=== PATIENT | female | born 1965 | race African-American/Black ===

== ENCOUNTER → 2016-09-16 19:14 | Outpatient (CLI) | payer OTHER ==
[~2016-09-16 19:14] MED LIST: ELIQUIS2.5 MG PO; HYDROCODONE-APA1 TAB PO; LOTREL 5/20 MG1 CAP; MOBIC7.5 MG PO; VALTREX500 MG PO; ZOFRAN4 MG PO
[2016-10-13 11:33] VITALS: BMI 40.4
== END | disposition home or self-care (01) ==
LOC: D.LABREF 19:14
DX: M17.9 Osteoarthritis of knee, unspecified (principal); Z11.8 Encounter for screening for other infectious and parasitic diseases

== ENCOUNTER 2016-10-09 09:30 | Inpatient (IN) | payer OTHER ==
[~2016-10-09] VITALS: Ht 162.6 cm; Wt 106.8 kg
[2016-10-09 09:15] LABS: BASOPHILS 1.1 % (0.0-2.0); EOSINOPHILS 1.9 % (0-7); HEMATOCRIT 40.3 % (36.0-48.0); HEMOGLOBIN 12.7 g/dL (12-16); IMMATURE GRANULOCYTES 0.2 % (0-5); LYMPHOCYTES 41.8 % (15-50); MCH 28.9 pg (26.0-34.0); MCHC 31.5 g/dL (31.0-37.0); MCV 91.8 fL (80.0-100.0); MEAN PLATELET VOLUME 11.5 fL (7.4-10.4); MONOCYTES 9.6 % (2-11); NEUTROPHILS 45.4 % (40-80); PLATELET COUNT 227 10x3/uL (130-400); RBC 4.39 10x6/uL (4.00-5.40); RDW 13.9 % (11.5-14.5); WBC 5.2 10x3/uL (4.8-10.8)
[2016-10-09 09:21] LABS: APPEARANCE HAZY (CLEAR); BACTERIA MODERATE /hpf (NONE SEEN); BILIRUBIN NEGATIVE (NEGATIVE); COLOR YELLOW (YELLOW); GLUCOSE NEGATIVE (NEGATIVE); KETONE NEGATIVE (NEGATIVE); LEUKOCYTE ESTERASE TRACE (NEGATIVE); NITRITE NEGATIVE (NEGATIVE); PROTEIN NEGATIVE (NEGATIVE); RED CELLS - URINE OCC /hpf (0-5); SPECIFIC GRAVITY 1.025 (1.005-1.020); UROBILINOGEN NORMAL (NORMAL); WHITE CELLS - URINE 0-5 /hpf (0-5)
[2016-10-09 09:22] LABS: MUCUS >1+ /lpf (NONE SEEN)
[2016-10-09 09:24] LABS: APTT 27.3 SECONDS (22.8-39.4); INR 1.02 (0.85-1.17); PROTIME 13.2 SECONDS (11.6-15.0)
[2016-10-09 09:27] LABS: ANION GAP 7.9 mmol/L (8-16); CALCIUM 8.8 mg/dL (8.5-10.1); CARBON DIOXIDE 30.8 mmol/L (21.0-32.0); POTASSIUM - SERUM 3.7 mmol/L (3.5-5.1)
[~2016-10-09 09:30] MED LIST changes: -ELIQUIS2.5 MG PO; -HYDROCODONE-APA1 TAB PO; -ZOFRAN4 MG PO
[2016-10-13] VITALS (10 sets, daily range): BP systolic 108–158; BP diastolic 75–96; Ht 162.6 cm; Wt 106.8 kg
--- NOTE | 2016-10-13 08:54 | NUR ---
FOOT AND LEG,R, WASHED WITH HIBICLENS AND ALCOHOL PRIOR TO CHLORPREP PER DN
--- NOTE | 2016-10-13 10:10 | NUR ---
RECEIVED TO ROOM 2208 AT THIS TIME FROM THE RECOVERY ROOM VIA BED. PT IS LETHARGIC, BUT ORIENTED. IV TO RIGHT HAND PATENT. DRESSING TO RIGHT KNEE C/D/I. ICE TO RIGHT KNEE AT THIS TIME. AUNT AT BEDSIDE. POST OPERATIVE VITAL SIGNS INITIATED PER PROTOCOL. PT DENIES PAIN AT THIS TIME. SCD'S TO BILATERAL LOWER EXTREMETIES ON AND IN WORKING ORDER. BED ALARM ON. CALL LIGHT IN REACH. ASSESSMENT AND HISTORY OBTAINED PER FLOWSHEET. ISNTRUCTED PT TO USE INCENTIVE SPIROMETER 10 TIMES AN HOUR WHILE AWAKE. PT VERBALIZED UNDERSTANDING AND DEMONSTRATED USE WITH 2,500ML OF INSPIRED VOLUME. PLACED ON BED HAMILTON AND PT VOIDED 300ML OF CLEAR, YELLOW URINE WITHOUT DIFFICULTY. DENIES FURTHER NEEDS AT THIS TIME. WILL CONTINUE WITH PLAN OF CARE.
--- NOTE | 2016-10-13 12:30 | NUR ---
EATING LUNCH AT THIS TIME. VITAL SIGNS REMAIN STABLE. CALL LIGHT IN REACH, DRESSING TO RIGHT KNEE C/D/I. WILL CONTINUE WITH PLAN OF CARE.
--- NOTE | 2016-10-13 14:25 | NUR ---
USING BED HAMILTON WITHOUT DIFFICULTY AT THIS TIME. DENIES PAIN. CALL LIGHT IN REACH, INCENTIVE SPIROMETER IN USE.
--- NOTE | 2016-10-13 18:15 | NUR ---
PRN NORCO-10 ADMINISTERED PER ORDER AND CPM APPLIED. DENIES FURTHER NEEDS, CALL LIGHT IN REACH, WILL CONTINUE WITH PLAN OF CARE.
--- NOTE | 2016-10-13 18:23 | OP ---
PATIENT NAME: FRANCISCO RAINES MEDICAL RECORD: [id number] :63 LOCATION:[id number] ADMISSION DATE:10/13/16 SURGEON: GODFREY HARRIS MD DATE OF OPERATION: 10/13/2016 PREOPERATIVE DIAGNOSIS: End-stage degenerative arthritis of the right knee. POSTOPERATIVE DIAGNOSIS: End-stage degenerative arthritis of the right knee. PROCEDURE: Right total knee arthroplasty. SURGEON: Godfrey Harris MD ANESTHESIA: General. INTRAOPERATIVE COMPLICATIONS: None. SUMMARY OF PATHOLOGIC FINDINGS: The patient had extensive tricompartmental osteoarthritis. IMPLANTS USED: Carla triathlon press fit total knee arthroplasty system, size 5, distal femur 11 polyethylene insert, size 5, tibial baseplate with a size 33 patella. All components press fit. OPERATIVE SUMMARY IN DETAIL: After obtaining the appropriate preoperative orthopedic surgery consent, as well as anesthetic consultation, evaluation and clearance operating room and placed on the table in supine position. After general laryngeal mask was administered, tourniquet was placed about the proximal aspect of the right lower extremity. Right lower extremity was then prepped and draped in routine sterile fashion. The leg was elevated and exsanguinated, tourniquet was inflated 350 mmHg. Midline incision was taken down for paramedian arthrotomy. Patella was everted, distal femur was exposed. Multiple osteophytes were taken down at this time. An intramedullary guide hole was created for intramedullary guided cut from the distal femoral. This was followed by the intramedullary guide hole cut for the proximal tibia. Appropriate measurements were taken and the chamfer cuts were made for the distal femur. Trials were put into place corresponding to the above-mentioned trials. Final distal femoral preparations as well as proximal tibial preparations were created. The patella was excised for a 33 patellar replacement. Excess osteophytes were revised after the patella was prepared likewise. All press fit components were tamped into place with good fit, fill and stability. The wound was irrigated and then through range of motion and found to be stable in all planes. Paramedian arthrotomy was closed with #2 Ethibond followed by #1 Vicryl, 2-0 Vicryl and skin sayra. Sterile dressings were applied. The patient was awakened, taken to recovery in stable condition. All final needle and sponge counts were correct. TRANSINT:[id number] Voice Confirmation ID: [id number] DOCUMENT ID: [id number] OPERATIVE REPORT [id number] FRANCISCO RAINES MD, GODFREY TURNER at 1823 CC: [id number] DICTATION DATE: 10/13/16 0940 TRANSPORT ANALYST: 10/13/16 1129 ADM IN [facility] [address] [id number]
--- NOTE | 2016-10-14 01:00 | NUR ---
RESTING WITH EYES CLOSED, RESP WITH EASE, DSG TO R KNEE CDI, CL IN REACH
[2016-10-14 04:00] VITALS: BP 116/73
--- NOTE | 2016-10-14 05:02 | NUR ---
CPM PLACED ON RIGHT LEG
[2016-10-14 06:42] LABS: HEMATOCRIT 33.6 % (36.0-48.0); HEMOGLOBIN 10.5 g/dL (12-16); MCHC 31.3 g/dL (31.0-37.0); MCV 89.6 fL (80.0-100.0); MEAN PLATELET VOLUME 11.7 fL (7.4-10.4); RBC 3.75 10x6/uL (4.00-5.40); RDW 13.6 % (11.5-14.5); WBC 11.6 10x3/uL (4.8-10.8)
--- NOTE | 2016-10-14 07:14 | NUR ---
STABLE THROUGH THE SHIFT, A&Ox3, MODERATE PAIN CONTROLED BY NORCO 10. NO NEEDS NOTED THROUGHOUT THE NIGHT.
--- NOTE | 2016-10-14 07:50 | NUR ---
PT SEEN AND ASSESSED. STATES PAIN IS CONTROLLED AT MOMENT BUT WILL NEED SOME WHEN DUE AGAIN. DRESSING TO LEFT KNEE CLEAN DRY AND INTACT-LEG WRAPPED WITH MICHELLE WRAP FROM MID THIGH TO CALF-ABLE TO MOVE TOES FREELY AND ARE WARM AND PINK. CURRENTLY IN CPM MACHINE-BED ALARM ON FOR SAFETY AND CALL LIGHT IN REACH
[2016-10-14 08:39] VITALS: BP 155/91
[2016-10-14 12:26] VITALS: BP 153/98
--- NOTE | 2016-10-14 13:25 | NUR ---
Is the patient Alert and Oriented? Yes 0 * How many steps to enter\exit or inside your home? 3 0 * PCP Dr. Fernando 0 * Pharmacy [facility] 0 * Preadmission Environment Home Alone 0 * ADLs Independent 0 * Equipment Rolling Walker 0 * List name and contact numbers for known caregivers / representatives who currently or will assist patient after discharge: Aunt - Nettie Mendiola [address] [facility] [phone] or [phone] * Additional services required to return to the preadmission environment? Yes 0 * Can the patient safely return to the preadmission environment? Yes 0 * Has this patient been hospitalized within the prior 30 days at any hospital? No 10/14/2016 13:11 DCP: Discharge Planning Patient Name: FRANCISCO RAINES Admission Status: Elective Accout number: [id number] Admission Date: 10-13-2016 : 1965 Admission Diagnosis: Attending: KAMERON Current LOS: 1 Anticipated DC Date: 10-15-2016 Planned Disposition: Outpatient PT\OT Primary Insurance: [facility] POS Discharge Planning Comments: CM met with patient to assess dc plans/needs. Patient states she lives alone & reports she was independent with all ADL's & IADL's. She has a rolling walker. At ar, she plans to stay with her aunt, Nettie Mendiola. She has chosen [facility] for outpatient physical therapy. Appt. scheduled 2/ @ . CPM was ordered by MD office through [facility] prior to admission - spoke with Lavern at [facility] - insurance does not cover CPM. She states they are working on getting approval with insurance company. No other needs identified at this time. Anticipate dc tomorrow afternoon. CM will follow.
[2016-10-14 16:58] VITALS: BP 153/87
[2016-10-14 19:00] VITALS: BP 152/87
--- NOTE | 2016-10-14 23:37 | NUR ---
PATIENT SLEEPING AFTER PERCOCET 10 GIVEN AND ZOFRAN. PIV INFUSING 1/2NS@75. SCD ON, BED IN LOWEST LOCKED POSITION, CALL LIGHT WITHIN REACH, HOB ELEVATED, BED ALARM ON.
--- NOTE | 2016-10-14 23:58 | NUR ---
RESTING WITH EYES CLOSED, RESP WITH EASE, NO DISTRESS NOTED, CL IN REACH
[2016-10-15 04:00] VITALS: BP 156/88
[2016-10-15 05:30] LABS: HEMATOCRIT 32.8 % (36.0-48.0); HEMOGLOBIN 10.4 g/dL (12-16); MCH 28.3 pg (26.0-34.0); MCHC 31.7 g/dL (31.0-37.0); MCV 89.4 fL (80.0-100.0); MEAN PLATELET VOLUME 11.8 fL (7.4-10.4); RBC 3.67 10x6/uL (4.00-5.40); RDW 13.7 % (11.5-14.5); WBC 9.2 10x3/uL (4.8-10.8)
[2016-10-15 05:37] LABS: CALC OSMOLALITY 272 mosm/kg (275-300); CALCIUM 8.6 mg/dL (8.5-10.1); CARBON DIOXIDE 29.1 mmol/L (21.0-32.0); CHLORIDE - SERUM 102 mmol/L (98-107); CREATININE - SERUM 0.8 mg/dL (0.6-1.3); GLUCOSE 99 mg/dL (74-106); POTASSIUM - SERUM 3.5 mmol/L (3.5-5.1); SODIUM 137 mmol/L (136-145); UREA NITROGEN 11 mg/dL (7-18); eGFR NON AFRICAN AMERICAN 80 mL/min (90-120)
[2016-10-15 07:57] VITALS: BP 139/77
--- NOTE | 2016-10-15 10:48 | NUR ---
PT SEEN THIS AM. STATED PAIN WAS TOLERABLE WITH 3/10 TO LEFT KNEE. DRESSING/MICHELLE WRAP TO LEFT KNEE CLEAN DRY AND INTACT. CURRENTLY SITTING IN CHAIR AT PRESENT AFTER THERAPY. NO N/V THIS AM BUT WILL LET ME KNOW. CALL LIGHT IN REACH.
[2016-10-15 11:57] VITALS: BP 136/77
[2016-10-15 12:23] LABS: APPEARANCE CLEAR (CLEAR); BILIRUBIN NEGATIVE (NEGATIVE); COLOR YELLOW (YELLOW); GLUCOSE NEGATIVE (NEGATIVE); KETONE NEGATIVE (NEGATIVE); LEUKOCYTE ESTERASE NEGATIVE (NEGATIVE); NITRITE NEGATIVE (NEGATIVE); PROTEIN TRACE mg/dL (NEGATIVE); SPECIFIC GRAVITY 1.015 (1.005-1.020); UROBILINOGEN NORMAL (NORMAL)
[2016-10-15 16:23] VITALS: BP 149/76
--- NOTE | 2016-10-15 18:11 | NUR ---
PT HAS HAD 1 EPISODE OF NAUSEA TODAY BUT NO EMESIS. ABLE TO EAT ALL OF DINNER BUT ASKED FOR SOUP INSTEAD. CURRENTLY IN CPM MACHINE WITH SCD ON BILAT. DRESSING REMAINS DRY AND INTACT AND PAIN IS CONTROLLED. CALL LIGHT IN REACH
--- NOTE | 2016-10-15 20:45 | NUR ---
ALERT,ORIENTD. SL INTACT TO LEFT ARM WITHOUT REDNESS OR EDEMA NOTED. MICHELLE WRAP INTACT TO LLE. NO DRAINANGE NOTED. PPP. NO DEFICIETS NOTED. DENIES DISCOMFORT AT PRESENT. CL IN REACH.
[2016-10-15 21:00] VITALS: BP 147/83
[2016-10-16] VITALS: BP 117/66
--- NOTE | 2016-10-16 02:15 | NUR ---
EYES CLOSED. RESP EVEN AND UNALBORED. CL IN REACH.
[2016-10-16 04:00] VITALS: BP 135/84
--- NOTE | 2016-10-16 04:00 | NUR ---
PATIENT SLEEPING ON CPM WITH NO DISTRESS NOTED. IV TO LEFT HAND PATENT WITH NO REDNESS OR SWELLING. SCD'S ON. SRX2. BED LOW. CALL LIGHT WITHIN REACH.
[2016-10-16 04:55] LABS: BASOPHILS 0.5 % (0.0-2.0); EOSINOPHILS 0.8 % (0-7); HEMATOCRIT 32.1 % (36.0-48.0); IMMATURE GRANULOCYTES 0.2 % (0-5); LYMPHOCYTES 27.2 % (15-50); MCH 28.3 pg (26.0-34.0); MCHC 31.2 g/dL (31.0-37.0); MCV 90.9 fL (80.0-100.0); MEAN PLATELET VOLUME 11.6 fL (7.4-10.4); MONOCYTES 13.9 % (2-11); NEUTROPHILS 57.4 % (40-80); PLATELET COUNT 167 10x3/uL (130-400); RBC 3.53 10x6/uL (4.00-5.40); RDW 13.8 % (11.5-14.5); WBC 8.4 10x3/uL (4.8-10.8)
[2016-10-16 05:23] LABS: ALBUMIN 2.9 g/dL (3.4-5.0); ANION GAP 9.2 mmol/L (8-16); BILIRUBIN - TOTAL 0.47 mg/dL (0.2-1.3); CALCIUM 8.6 mg/dL (8.5-10.1); CARBON DIOXIDE 30.5 mmol/L (21.0-32.0); CREATININE - SERUM 0.9 mg/dL (0.6-1.3); POTASSIUM - SERUM 3.7 mmol/L (3.5-5.1); PROTEIN - SERUM 6.8 g/dL (6.4-8.2)
--- NOTE | 2016-10-16 06:47 | NUR ---
NO CHANGE IN ASSESSMENT. CL IN REACH.
--- NOTE | 2016-10-16 07:15 | NUR ---
PATIENT IS AWAKE, ALERT AND ORIENTED X'S 4. RESPIRATIONS ARE EVEN AND UNLABORED ON ROOM AIR. NO SIGNS OF DISTRESS NOTED. CPM ON. BED ALARM ON. PATIENT DENIES NEEDS.
[2016-10-16 08:08] VITALS: BP 134/81
[2016-10-16] MEDS ORDERED: ELIQUIS2.5 MG PO (08:18)
[2016-10-16] MEDS ORDERED: HYDROCODONE-APA1 TAB PO (08:18)
--- NOTE | 2016-10-16 08:49 | NUR ---
10/16/2016 8:48 DCP: Discharge Planning Patient Name: FRANCISCO RAINES Encounter No: [id number] : 1965 Primary Insurance: [employer] POS Anticipated DC Date: 10-15-2016 Planned Disposition: Outpatient PT\OT External Planned Provider: [facility] DCP follow-up note: DC order rec'd. Patient and family in agreement with discharge plan. No changes to plan. Rose Mary Canchola
[2016-10-16] MEDS ORDERED: ZOFRAN4 MG PO (11:00)
--- NOTE | 2016-10-16 11:46 | NUR ---
D/C IV WITH CATH INTACT. CHANGED DRESSING TO RIGHT KNEE. STERILE TECHNIQUE MAINTAINED. CLEANED WITH STERILE [employer] INTERN AND STERILE 4X4 GAUZE. APPLIED AQUACEL DRESSING.
--- NOTE | 2016-10-16 12:30 | NUR ---
PATIENT LEFT VIA WHEELCHAIR WITH VOLUNTEER STAFF
== END 2016-10-16 12:33 | disposition home or self-care (01) | DRG 470 ==
LOC: D.SDCHOLD 09:30 → D.MS 10-13 05:29 → D.SDCHOLD 10-13 07:30 → D.MS 10-13 10:01
PROVIDERS: Family Medicine; ADMIT Orthopaedic Surgery
PROC: 0SRC0J9 Replacement of Right Knee Joint with Synthetic Substitute, Cemented, Open Approach (ICD-10-PCS; principal; 2016-10-13 08:00)
DX: M17.11 Unilateral primary osteoarthritis, right knee (principal); J98.11 Atelectasis; I10 Essential (primary) hypertension; M25.761 Osteophyte, right knee

== ENCOUNTER 2019-01-12 19:00 | Outpatient (CLI) | payer OTHER ==
[2016-10-13 11:33] VITALS: BMI 40.4
[~2019-01-12 19:00] MED LIST changes: +ELIQUIS2.5 MG PO; +HYDROCODONE-APA1 TAB PO; +ZOFRAN4 MG PO
== END 2019-01-12 23:59 | disposition home or self-care (01) ==
LOC: D.MAMMO 19:00
PROVIDERS: ATTEND Family Medicine
DX: Z12.31 Encounter for screening mammogram for malignant neoplasm of breast (principal)